=== PATIENT | male | born 1980 | race Two or more races ===

== ENCOUNTER 2018-02-14 10:09 | Emergency (ER) | payer MEDICAID ==
[~2018-02-14] VITALS: Ht 175.3 cm; Wt 77.1 kg
[2018-02-14 10:16] VITALS: BP_SYST 133
[2018-02-14 11:48] VITALS: BP_SYST 128
== END 2018-02-14 11:48 | disposition home or self-care (01) ==
LOC: SED 10:09
DX: M25.531 Pain in right wrist (principal); X50.0XXA Overexertion from strenuous movement or load, initial encounter; Y93.89 Activity, other specified; Y92.89 Other specified places as the place of occurrence of the external cause; Y99.8 Other external cause status
CPT/HCPCS: 99284